=== PATIENT | female | born 1995 | race Caucasian/White ===

== ENCOUNTER 2018-08-15 17:59 | Emergency (ER) | payer BC ==
[~2018-08-15] VITALS: Ht 160 cm; Wt 56.8 kg
[~2018-08-15 17:59] MED LIST: ETHI PO; NORGESTREL PO; TAMIFLU 75MG75 MG PO; ULTRAM 50MG TAB50 MG PO; ZOFRAN 4MG T4 MG/TAB PO
[2018-08-15 18:12] VITALS: BP 115/60; TEMP 97.2
[2018-08-15] MEDS ORDERED: ZOFRAN ODT4 MG PO (20:15)
[2018-08-15 20:35] VITALS: PULSE 91
== END 2018-08-15 20:35 | disposition home or self-care (01) ==
LOC: COL.ER 17:59
DX: S06.0X1A Concussion with loss of consciousness of 30 minutes or less, initial encounter (principal); Z88.2 Allergy status to sulfonamides; Y09 Assault by unspecified means; Y92.511 Restaurant or cafe as the place of occurrence of the external cause

== ENCOUNTER → 2019-04-25 | Outpatient (CLI) | payer BC ==
[~2019-04-25] MED LIST changes: +ZOFRAN ODT4 MG PO
== END ==
LOC: COL.RAD 12:03
DX: G43.709 Chronic migraine without aura, not intractable, without status migrainosus (principal); F07.81 Postconcussional syndrome
CPT/HCPCS: A9585